=== PATIENT | male | born 1965 | race Two or more races ===

== ENCOUNTER 2024-10-29 17:04 | Inpatient (IN) | payer MEDICAID ==
[~2024-10-29] VITALS: Ht 182.9 cm; Wt 79.4 kg
[2024-10-29] VITALS (9 sets, daily range): BP systolic 143; BP diastolic 60; TEMP 98.1; O2SAT 92–99
[2024-10-29] MEDS ORDERED: predniSONE 20 MG TABLET ONE (17:34)
[2024-10-29] MEDS: predniSONE 10 MG TABLET PO ONE (17:37)
[2024-10-29] MEDS: ALBUTEROL SULFATE 2.5 MG/3 ML NEBU NEB ONE ×2 (17:42→21:32)
[2024-10-29] MEDS: IPRATROPIUM BROMIDE 0.5 MG/2.5 ML NEBU NEB ONE ×2 (17:42→21:32)
[2024-10-29] MEDS ORDERED: IPRATROPIUM BROMIDE 0.5 MG/2.5 ML NEBU ONE ×3 (17:45→21:36)
[2024-10-29] MEDS ORDERED: ALBUTEROL SULFATE 2.5 MG/3 ML NEBU ONE ×3 (17:45→21:35)
[2024-10-29] MEDS: GUAIFENESIN/DEXTROMETHORPHAN 5 ML UDC PO ONE (18:02)
[2024-10-29 18:22] LABS: BASOPHILS % (AUTO) 0.2 % (0.0-2.0); EOSINOPHILS # (AUTO) 0.1 K/uL (0.0-0.7); EOSINOPHILS % (AUTO) 0.6 % (0.0-7.0); HEMOGLOBIN 12.3 g/dL (12.5-16.3); LYMPHOCYTES # (AUTO) 2.4 K/uL (0.8-4.8); LYMPHOCYTES % (AUTO) 16.2 % (20.5-51.5); MEAN CORPUSCULAR HEMOGLOBIN 27.2 uug (23.8-33.4); MEAN CORPUSCULAR HGB CONC 32 g/dL (32.5-36.3); MONOCYTES # (AUTO) 1.2 K/uL (0.1-1.30); MONOCYTES % (AUTO) 8.3 % (0.0-11.0); NEUTROPHILS # (AUTO) 11.1 K/uL (1.8-8.9); NEUTROPHILS % (AUTO) 74.7 % (38.5-71.5); PLATELET COUNT (AUTO) 264 K/uL (152-348); RED BLOOD CELL COUNT(AUTO) 4.52 MIL/uL (4.06-5.63); RED CELL DISTRIBUTION WIDTH 15.6 % (12.1-16.2); WHITE BLOOD COUNT (AUTO) 14.8 K/uL (3.6-10.2)
[2024-10-29 18:32] LABS: CALCIUM 8.7 mg/dL (8.5-10.1); CARBON DIOXIDE 24 mmol/L (21-32); CHLORIDE 108 mmol/L (98-107); DIFFERENTIAL COMMENT 1; GLUCOSE 87 mg/dL (74-106); POTASSIUM 3.3 mmol/L (3.5-5.1); SODIUM SERUM 148 mmol/L (136-145); UREA NITROGEN, BLOOD 12 mg/dL (7-18)
[2024-10-29] MEDS ORDERED: HYDR50CA5 PO (18:32)
[2024-10-29] MEDS ORDERED: QUET300T2 PO (18:32)
[2024-10-29] MEDS ORDERED: TRAZ-257 PO (18:32)
[2024-10-29] MEDS ORDERED: BUSP5TAB3 PO (18:32)
[2024-10-29] MEDS ORDERED: LOSA50TA39 PO (18:32)
[2024-10-29] MEDS ORDERED: HYDR-501 PO (18:32)
[2024-10-29] MEDS ORDERED: GABA300C PO (18:32)
[2024-10-29] MEDS ORDERED: FLUO20TA28 PO (18:33)
[2024-10-29] MEDS ORDERED: AMLO-212 PO (18:33)
[2024-10-29] MEDS ORDERED: OXCA150T13 PO (18:33)
[2024-10-29 18:47] LABS: ALANINE AMINOTRANSFERASE 20 U/L (16-63); ALBUMIN 3.3 g/dL (3.4-5.0); ALKALINE PHOSPHATASE 64 U/L (50-136); ASPARTATE AMINOTRANSFERASE 9 U/L (15-37); BILIRUBIN,DIRECT 0.1 mg/dL (0.0-0.2); BILIRUBIN,TOTAL 0.2 mg/dL (0.2-1.0); NT-PRO BNP 117 pg/mL (0-125); TOTAL PROTEIN, SERUM 7.2 g/dL (6.4-8.2)
[2024-10-29] MEDS: ACETAMINOPHEN 325 MG TABLET PO ONE (20:00)
[2024-10-29] MEDS ORDERED: ACETAMINOPHEN 500 MG TABLET ONE (20:13)
[2024-10-29] MEDS: ACETAMINOPHEN 500 MG TABLET PO ONE (20:22)
[2024-10-29] MEDS ORDERED: ONDANSETRON 4 MG/2 ML VIAL IV PRN (23:00)
[2024-10-29] MEDS: ENOXAPARIN SODIUM 40 MG/0.4 ML DISP.SYRIN SQ SCH (23:00)
[2024-10-29] MEDS: POTASSIUM CHLORIDE 20 MEQ TAB.PRT.SR PO ONE (23:00)
[2024-10-29] MEDS: POTASSIUM CHLORIDE 10 MEQ TAB.PRT.SR PO ONE (23:44)
[2024-10-29] MEDS: IV D5W 1000ML 1,000 ML IV PRN (23:45)
[2024-10-29] MEDS: GUAIFENESIN/DEXTROMETHORPHAN 5 ML UDC PO PRN (23:45)
[2024-10-29] MEDS: DOXYCYCLINE HYCLATE 100 MG TABLET PO SCH (23:47)
[2024-10-30] VITALS (17 sets, daily range): BP systolic 122–143; BP diastolic 56–79; TEMP 98–98.5; O2SAT 94–98
[2024-10-30] MEDS: GABAPENTIN 300 MG CAPSULE PO SCH (01:54)
[2024-10-30] MEDS: TRAZODONE 100 MG TABLET PO SCH (02:39)
[2024-10-30] MEDS: ALBUTEROL SULFATE 2.5 MG/3 ML NEBU NEB PRN (04:40)
[2024-10-30] MEDS: PANTOPRAZOLE SODIUM 40 MG TABLET.DR PO SCH (06:13)
[2024-10-30] MEDS: methylPREDNISolone SOD SUCC 40 MG/ML VIAL IV SCH (06:13)
[2024-10-30] MEDS: ALBUTEROL SULFATE 2.5 MG/3 ML NEBU NEB SCH (07:27)
[2024-10-30] MEDS: IPRATROPIUM BROMIDE 0.5 MG/2.5 ML NEBU NEB SCH (07:27)
[2024-10-30 07:30] LABS: BASOPHILS % (AUTO) 0.2 % (0.0-2.0); HEMATOCRIT 37.6 % (36.7-47.1); HEMOGLOBIN 12.4 g/dL (12.5-16.3); LYMPHOCYTES % (AUTO) 9.3 % (20.5-51.5); MEAN CORPUSCULAR HGB CONC 33 g/dL (32.5-36.3); MEAN CORPUSCULAR VOLUME 84.7 fL (73.0-96.2); MONOCYTES # (AUTO) 0.7 K/uL (0.1-1.30); MONOCYTES % (AUTO) 6.7 % (0.0-11.0); NEUTROPHILS # (AUTO) 8.6 K/uL (1.8-8.9); NEUTROPHILS % (AUTO) 83.8 % (38.5-71.5); PLATELET COUNT (AUTO) 251 K/uL (152-348); RED BLOOD CELL COUNT(AUTO) 4.43 MIL/uL (4.06-5.63); WHITE BLOOD COUNT (AUTO) 10.3 K/uL (3.6-10.2)
[2024-10-30 07:51] LABS: DIFFERENTIAL COMMENT 1
[2024-10-30 07:54] LABS: CALCIUM 8.5 mg/dL (8.5-10.1); CREATININE 0.9 mg/dL (0.6-1.3); MAGNESIUM 1.7 mg/dL (1.8-2.4); PHOSPHOROUS 2.2 mg/dL (2.5-4.9); POTASSIUM 3.9 mmol/L (3.5-5.1)
[2024-10-30] MEDS: AMLODIPINE 5 MG TABLET PO SCH (12:45)
[2024-10-30] MEDS: FLUOXETINE HCL 20 MG CAPSULE PO SCH (12:45)
[2024-10-30] MEDS: MAGNESIUM OXIDE 400 MG TABLET PO ONE (12:45)
[2024-10-30] MEDS: busPIRone 5 MG TABLET PO SCH (12:46)
[2024-10-30] MEDS ORDERED: hydrOXYzine HCL 25 MG TABLET PO SCH (13:00)
[2024-10-30] MEDS: OXCARBAZEPINE 150 MG TABLET PO SCH (14:37)
[2024-10-30] MEDS: NEUTRA PHOS PACKET PO ONE (16:37)
[2024-10-30] MEDS: LOSARTAN POTASSIUM 50 MG TABLET PO SCH (16:41)
[2024-10-30] MEDS: QUETIAPINE FUMARATE 100 MG TABLET PO SCH (20:12)
[2024-10-30] MEDS ORDERED: hydrOXYzine HCL 25 MG TABLET ONE (22:43)
[2024-10-30] MEDS: HYDROXYZINE PAMOATE 25 MG CAPSULE PO PRN (22:59)
[2024-10-31] VITALS (15 sets, daily range): BP systolic 108–147; BP diastolic 68–82; TEMP 97.7–98.8; O2SAT 94–99
[2024-10-31 07:34] LABS: CALCIUM 8.6 mg/dL (8.5-10.1); PHOSPHOROUS 1.9 mg/dL (2.5-4.9); POTASSIUM 4.8 mmol/L (3.5-5.1)
[2024-10-31] MEDS ORDERED: BENZOCAINE/MENTH/CETYLPYRD LOZENGE MM PRN (09:15)
[2024-10-31] MEDS: SODIUM PHOSPHATE MM 15 MMOL in IV NORMAL SALINE 250 ML IV ONE (09:40)
[2024-11-01] VITALS (14 sets, daily range): BP systolic 130–155; BP diastolic 65–80; TEMP 98–98.6; O2SAT 94–99
[2024-11-01] MEDS ORDERED: GUAIFENESIN/DEXTROMETHORPHAN 5 ML UDC PO PRN (08:15)
[2024-11-01] MEDS: BENZONATATE 100 MG CAPSULE PO SCH (08:37)
[2024-11-01] MEDS: METFORMIN HCL 500 MG TABLET PO SCH (08:37)
[2024-11-01] MEDS: ALBUTEROL SULFATE 2.5 MG/3 ML NEBU NEB SCH (11:59)
[2024-11-01] MEDS: IPRATROPIUM BROMIDE 0.5 MG/2.5 ML NEBU NEB SCH (11:59)
[2024-11-01] MEDS: MAGNESIUM HYDROXIDE 30 ML LIQUID UDC PO PRN (21:00)
[2024-11-01] MEDS: ACETAMINOPHEN 325 MG TABLET PO PRN (21:01)
[2024-11-02] VITALS (14 sets, daily range): BP systolic 117–159; BP diastolic 68–78; TEMP 98–98.7; O2SAT 93–99
[2024-11-02 07:54] LABS: POTASSIUM 4.3 mmol/L (3.5-5.1)
[2024-11-02 08:06] LABS: BASOPHILS % (AUTO) 0.3 % (0.0-2.0); DIFFERENTIAL COMMENT 0; HEMOGLOBIN 12.7 g/dL (12.5-16.3); MEAN CORPUSCULAR HEMOGLOBIN 28.6 uug (23.8-33.4); MEAN CORPUSCULAR HGB CONC 34 g/dL (32.5-36.3); MEAN CORPUSCULAR VOLUME 85.3 fL (73.0-96.2); MONOCYTES # (AUTO) 0.7 K/uL (0.1-1.30); MONOCYTES % (AUTO) 5.9 % (0.0-11.0); NEUTROPHILS # (AUTO) 9.6 K/uL (1.8-8.9); NEUTROPHILS % (AUTO) 84.8 % (38.5-71.5); PLATELET COUNT (AUTO) 282 K/uL (152-348); RED BLOOD CELL COUNT(AUTO) 4.46 MIL/uL (4.06-5.63); RED CELL DISTRIBUTION WIDTH 15.3 % (12.1-16.2); WHITE BLOOD COUNT (AUTO) 11.3 K/uL (3.6-10.2)
[2024-11-02 08:43] LABS: MAGNESIUM 1.9 mg/dL (1.8-2.4); PHOSPHOROUS 2.8 mg/dL (2.5-4.9)
[2024-11-02] MEDS: methylPREDNISolone SOD SUCC 40 MG/ML VIAL IV SCH (20:41)
[2024-11-03] VITALS (12 sets, daily range): BP systolic 130–147; BP diastolic 12–77; TEMP 98.1–98.7; O2SAT 93–99
[2024-11-03 07:28] LABS: BASOPHILS % (AUTO) 0.2 % (0.0-2.0); HEMATOCRIT 41.5 % (36.7-47.1); HEMOGLOBIN 13.3 g/dL (12.5-16.3); LYMPHOCYTES # (AUTO) 1.6 K/uL (0.8-4.8); LYMPHOCYTES % (AUTO) 11.6 % (20.5-51.5); MEAN CORPUSCULAR HEMOGLOBIN 27.1 uug (23.8-33.4); MEAN CORPUSCULAR HGB CONC 32 g/dL (32.5-36.3); MEAN CORPUSCULAR VOLUME 84.9 fL (73.0-96.2); MONOCYTES % (AUTO) 7.4 % (0.0-11.0); NEUTROPHILS # (AUTO) 10.9 K/uL (1.8-8.9); NEUTROPHILS % (AUTO) 80.8 % (38.5-71.5); PLATELET COUNT (AUTO) 353 K/uL (152-348); RED BLOOD CELL COUNT(AUTO) 4.89 MIL/uL (4.06-5.63); RED CELL DISTRIBUTION WIDTH 15.5 % (12.1-16.2); WHITE BLOOD COUNT (AUTO) 13.5 K/uL (3.6-10.2)
[2024-11-03 07:32] LABS: DIFFERENTIAL COMMENT 1
[2024-11-03 07:44] LABS: CALCIUM 8.6 mg/dL (8.5-10.1); CREATININE 0.8 mg/dL (0.6-1.3); POTASSIUM 4.3 mmol/L (3.5-5.1)
[2024-11-03] MEDS: MAGNESIUM CITRATE 296 ML BOTTLE PO PRN (15:40)
[2024-11-03 23:30] LABS: BAND % (MANUAL) 3 % (0-10); LYMPHOCYTES % (MANUAL) 14 % (20-40); MONOCYTES % (MANUAL) 5 % (2-10); NEUTROPHILS % (MANUAL) 78 % (42-75)
[2024-11-04 06:46] VITALS: BP 98/77; TEMP 97.8
[2024-11-04] MEDS ORDERED: PRED50TA PO (08:08)
[2024-11-04] MEDS ORDERED: DOXY100T2 PO (08:08)
[2024-11-04 08:09] VITALS: O2SAT 96
[2024-11-04 08:24] VITALS: O2SAT 99
[2024-11-04 08:49] VITALS: BP 98/77
[2024-11-04] MEDS: predniSONE 20 MG TABLET PO SCH (08:55)
[2024-11-04 11:18] VITALS: O2SAT 95
[2024-11-04 11:33] VITALS: O2SAT 99
== END 2024-11-04 13:40 | DRG 140 ==
LOC: ER 17:04 → TELE3 21:29 → MEDSURG3 10-31 10:09
PROVIDERS: ADMIT Nurse Practitioner Family; ATTEND Internal Medicine
DX: J44.1 Chronic obstructive pulmonary disease with (acute) exacerbation (principal); I11.9 Hypertensive heart disease without heart failure; E11.65 Type 2 diabetes mellitus with hyperglycemia; J44.0 Chronic obstructive pulmonary disease with (acute) lower respiratory infection; J20.9 Acute bronchitis, unspecified; F17.210 Nicotine dependence, cigarettes, uncomplicated; Z89.512 Acquired absence of left leg below knee; F31.9 Bipolar disorder, unspecified; Z86.718 Personal history of other venous thrombosis and embolism; Z79.899 Other long term (current) drug therapy; Z86.16 Personal history of COVID-19; Z91.040 Latex allergy status; Z88.8 Allergy status to other drugs, medicaments and biological substances; Z91.018 Allergy to other foods; Z77.110 Contact with and (suspected) exposure to air pollution; R00.0 Tachycardia, unspecified; R79.1 Abnormal coagulation profile
CPT/HCPCS: 36415; 71045; 83735; 84100; 84484; 85025; 85730; 94640; 94664; 94760; A9150; G0378; J1650; J2919; J3490; J3590; J7042; J7070; J7512